=== PATIENT | female | born 1995 | race Caucasian/White ===

== ENCOUNTER 2016-12-28 10:41 | Emergency (ER) | payer OTHER ==
[~2016-12-28] VITALS: Ht 157.5 cm; Wt 114.0 kg
[~2016-12-28 10:41] MED LIST: DOCU-144 PO; FER325 PO; MEDR10TA2 PO
[2016-12-28 10:44] VITALS: Ht 157.5 cm; Wt 114.0 kg
[2016-12-28] MEDS ORDERED: IBUPROFEN 600 MG TAB PO ONE (11:00)
--- NOTE | 2016-12-28 11:55 | ERD ---
ER Documentation Chief Complaint Date/Time DATE: 12/28/16 TIME: 11:52 Chief Complaint pt bib self with c/o sore throat and fever for a few days HPI Patient is a 21-year-old female who presents to the emergency department for concerns of a headache and fever 3 days. Patient reports pain with swallowing. Denies any trismus, drooling or hyperextension of her neck. Patient states she did have a cough last night however it was secondary to her throat irritation. Patient denies any cough otherwise. Patient denies any rhinorrhea, ear pain, abdominal pain, nausea, vomiting or diarrhea. Patient does report some generalized body aches. No recent travel. No sick contacts. Patient denies taking any medications for fevers. Patient did not check her temperature at home. ROS All systems reviewed and are negative except as per history of present illness. Medications Home Meds Active Scripts Acetaminophen* (Tylophen*) 500 Mg Capsule, 1 CAP PO Q6H Y for PAIN AND OR ELEVATED TEMP, #20 CAP Prov:KENNETH GREEN PA-C 12/28/16 Ibuprofen* (Motrin*) 600 Mg Tab, 600 MG PO Q6, #30 TAB Prov:KENNETH GREEN PA-C 12/28/16 Azithromycin* (Zithromax*) 500 Mg Tablet, 500 MG PO DAILY for 5 Days, TAB Prov:KENNETH GREEN PA-C 12/28/16 Docusate Sodium* (Colace*) 100 Mg Capsule, 100 MG PO BID, #60 CAP Prov:ISABEL CORONA PA-C 07/27/15 Ferrous Sulfate* (Ferrous Sulfate*) 325 Mg Tabec, 325 MG PO BID, #30 TAB Prov:ISABEL CORONA PA-C 07/27/15 Medroxyprogesterone Acetate* (Provera*) 10 Mg Tablet, 10 MG PO DAILY, #10 TAB Prov:ISABEL CORONA PA-C 07/27/15 Allergies Allergies: Uncoded Allergies: PENICILLIN (Allergy, Unknown, 10/01/13) PMhx/Soc Medical and Surgical Hx: pt denies Surgical Hx History of Surgery: No Anesthesia Reaction: No Hx Neurological Disorder: No Hx Respiratory Disorders: No Hx Cardiac Disorders: No Hx Psychiatric Problems: No Hx Miscellaneous Medical Probl: Yes (ANEMIA) Hx Alcohol Use: No Hx Substance Use: No Hx Tobacco Use: Yes Smoking Status: Current every day smoker Physical Exam Vitals Vital Signs Date Time Temp Pulse Resp B/P Pulse Ox O2 Delivery O2 Flow Rate FiO2 12/28/16 13:04 100.2 99 18 123/86 100 Room Air 12/28/16 10:44 102.2 119 20 165/76 99 Physical Exam GENERAL: Well-developed, well-nourished female. Appears in no acute distress. Taking in full sentences HEAD: Normocephalic, atraumatic. No deformities or ecchymosis. EYE: Pupils equal, round, and reactive to light. EOMs intact. No conjunctival erythema. No eye discharge. ENT: External ear without any masses or tenderness. Auditory canals clear bilaterally. TM visualized bilaterally, non-erythematous, non-bulging. Nasal mucosa pink with no discharge. Bilateral tonsillar erythema and swelling noted. No unilateral tonsillar swelling. Single exudate noted on the patient' s right upper tonsil. No uvula deviation. No kissing tonsils. No trismus. No drooling. NECK: Supple. No meningismus. Normal ROM of the neck. Hyperextension of the neck. LUNG: Clear to auscultation bilaterally. No rhonchi, wheezing, rales or coarse breath sounds. HEART: Regular rate and rhythm. No murmurs, rubs or gallops. EXTREMITES: Equal pulses bilaterally. No peripheral clubbing, cyanosis or edema. No unilateral leg swelling. NEUROLOGIC: Alert and oriented to person, place and time. Moving all four extremities. 5/5 strength in all extremities. Normal speech. Steady gait. SKIN: Normal color. Warm and dry. No rashes or lesions. Results 24 hrs Laboratory Tests Test 12/28/16 11:20 Monoscreen Negative Current Medications Medications (Trade) Dose Ordered Sig/Marion Route PRN Reason Start Time Stop Time Status Last Admin Dose Admin Ibuprofen (Motrin) 600 mg ONCE ONCE PO 12/28/16 11:00 12/28/16 11:01 DC 12/28/16 11:04 Procedures/MDM ED COURSE: The patient was stable throughout ED course. I kept the patient and/or family informed of laboratory and diagnostic imaging results throughout the ED course. EKG: Read by Dr. Escobedo, attending physician. EKG shows sinus tachycardia a rate of 103 bpm. No arrhythmias, acute ST elevations or T wave changes were noted. PROCEDURES: None. MEDICATIONS GIVEN: Ibuprofen Patient tolerated medication well with no adverse reactions. Patient reported improvement in pain. MEDICAL DECISION MAKING: This is a 21-year-old female presents with throat pain and fever 3 days. Vital signs were reviewed. Patient was febrile at initial presentation with a temperature of 102.2F. Was also noted to be tachycardic with a pulse of 119 bpm upon arrival. Patient was not hypoxic. The patient does not have trismus, muffled voice, uvula deviation, unilateral tonsillar swelling, or drooling. No signs of neck swelling or hyperextension of the neck noted. She was given Motrin here in the emergency department. Patient's temperature was noted to be down trending. Monospot was negative. EKG showed sinus tachycardia of 103 bpm. Given these findings, the patients presentation is most consistent with bacterial tonsillitis.Low suspicion for epiglottitis, peritonsillar abscess, retropharyngeal abscess, Ludwigs angina, mononucleosis, dental abscess. Patient 's pulse and temperature were noted to be downtrending prior to discharge. Low suspicion for sepsis. PRESCRIPTIONS: Azithromycin, given patient has PCN allergy Tylenol/Ibuprofen for fever and pain control. DISCHARGE: At this time, patient is stable for discharge and outpatient management. Supportive therapies such as OTC throat lozenges and warm salt water gurgles were discussed. I have instructed the patient to follow-up with his/her primary care physician in 1-2 days. I have discussed with the patient the possibility of needing to see a specialist for further workup and imaging studies if symptoms persist. I have instructed the patient to promptly return to the ER for any new or worsening symptoms including increased pain, fever, nausea, vomiting, weakness or LOC. The patient and/or family expressed understanding of and agreement with this plan. All questions were answered. Home care instructions were provided. Patients blood pressure was elevated (>120/80) but appears stable without evidence of hypertensive emergency, hypertensive urgency or end-organ failure. I had discussion with the patient about the risks of hypertension. I have advised the patient to follow up with his/her primary care physician for outpatient monitoring and treatment for hypertension in 2-3 days. I have instructed the patient to return to the ER for any new or worsening symptoms including chest pain, shortness of breath, headache, blurred vision, confusion, nausea, vomiting or LOC. Departure Diagnosis: Primary Impression: Acute bacterial tonsillitis Condition: Stable Patient Instructions: Pharyngitis, Strep (Presumed) Referrals: [facility] YOU HAVE RECEIVED A MEDICAL SCREENING EXAM AND THE RESULTS INDICATE THAT YOU DO NOT HAVE A CONDITION THAT REQUIRES URGENT TREATMENT IN THE EMERGENCY DEPARTMENT. FURTHER EVALUATION AND TREATMENT OF YOUR CONDITION CAN WAIT UNTIL YOU ARE SEEN IN YOUR DOCTORS OFFICE WITHIN THE NEXT 1-2 DAYS. IT IS YOUR RESPONSIBILITY TO MAKE AN APPOINTMENT FOR FOLOW-UP CARE. IF YOU HAVE A PRIMARY DOCTOR --you should call your primary doctor and schedule an appointment IF YOU DO NOT HAVE A PRIMARY DOCTOR YOU CAN CALL OUR PHYSICIAN REFERRAL HOTLINE AT IF YOU CAN NOT AFFORD TO SEE A PHYSICIAN YOU CAN CHOSE FROM THE FOLLOWING [facility] [address] [facility] [address] [facility] [address] [facility] [address] [facility] [address] [facility]. [facility] [address] [facility]. [facility] YOU HAVE RECEIVED A MEDICAL SCREENING EXAM AND THE RESULTS INDICATE THAT YOU DO NOT HAVE A CONDITION THAT REQUIRES URGENT TREATMENT IN THE EMERGENCY DEPARTMENT. FURTHER EVALUATION AND TREATMENT OF YOUR CONDITION CAN WAIT UNTIL YOU ARE SEEN IN YOUR DOCTORS OFFICE WITHIN THE NEXT 1-2 DAYS. IT IS YOUR RESPONSIBILITY TO MAKE AN APPOINTMENT FOR FOLOW-UP CARE. IF YOU HAVE A PRIMARY DOCTOR --you should call your primary doctor and schedule and appointment IF YOU DO NOT HAVE A PRIMARY DOCTOR YOU CAN CALL OUR PHYSICIAN REFERRAL HOTLINE AT . IF YOU CAN NOT AFFORD TO SEE A PHYSICIAN YOU CAN CHOSE FROM THE FOLLOWING [facility] IN[facility]UTIONS: [facility] [address] [place] [address] [facility] [address] [place] [address] [facility] [address] [place] [address] Additional Instructions: Take Motrin and Tylenol for fevers and pain. Call your primary care doctor TOMORROW for an appointment during the next 1-2 days.See the doctor sooner or return here if your condition worsens before your appointment time. KENNETH GREEN PA-C Dec 28, 2016 11:55
[2016-12-28] MEDS ORDERED: AZIT500T3 PO (12:25)
[2016-12-28] MEDS ORDERED: ACET500C5 PO (12:28)
[2016-12-28] MEDS ORDERED: IBUP-1542 PO (12:28)
[2016-12-28 13:04] VITALS: BP 123/86; PULSE 99; RESP 18; TEMP 100.2
== END 2016-12-28 13:33 | disposition home or self-care (01) ==
LOC: FTE 10:41
DX: J03.90 Acute tonsillitis, unspecified (principal); F17.210 Nicotine dependence, cigarettes, uncomplicated
CPT/HCPCS: 86308; 93005; Z7502; Z7610

== ENCOUNTER 2018-09-12 10:02 | Emergency (ER) | payer OTHER ==
[~2018-09-12] VITALS: Wt 120.0 kg
[~2018-09-12 10:02] MED LIST changes: +ACET500C5 PO; +AZIT500T3 PO; +IBUP-1542 PO
[2018-09-12 10:12] VITALS: BP 171/71; PULSE 78; RESP 18
[2018-09-12] MEDS ORDERED: KETOROLAC 30 MG INJ IM STA (10:29)
[2018-09-12] MEDS ORDERED: HYDR-4011 PO (11:29)
--- NOTE | 2018-09-12 11:47 | ERD ---
ER Documentation Chief Complaint Chief Complaint LEFT ANKLE PAIN AFTER FALL YESTERDAY HPI 23-year-old female no significant past medical history who presents for left ankle pain x1 day. States that she was walking and fell down steps and rolled her ankle. She states that she has 10 out of 10 pain. The pain is mostly in the lateral side. The pain is described as sharp, nonradiating, worse with movement. she tried some ibuprofen and ice with mild relief. No other modifying factors noted, no treatment tried at home. ROS All systems reviewed and are negative except as per history of present illness. Medications Home Meds Active Scripts Hydrocodone/Acetaminophen (Excel 5-325 Tablet) 1 Each Tablet, 1 TAB PO Q6H PRN for PAIN, #10 TAB Prov:JOEL MCFARLAND DO 09/12/18 Acetaminophen* (Tylophen*) 500 Mg Capsule, 1 CAP PO Q6H PRN for PAIN AND OR ELEVATED TEMP, #20 CAP Prov:KENNETH GREEN PA-C 12/28/16 Ibuprofen* (Motrin*) 600 Mg Tab, 600 MG PO Q6, #30 TAB Prov:KENNETH GREEN PA-C 12/28/16 Azithromycin* (Zithromax*) 500 Mg Tablet, 500 MG PO DAILY for 5 Days, TAB Prov:KENNETH GREEN PA-C 12/28/16 Docusate Sodium* (Colace*) 100 Mg Capsule, 100 MG PO BID, #60 CAP Prov:ISABEL CORONA PA-C 07/27/15 Ferrous Sulfate* (Ferrous Sulfate*) 325 Mg Tabec, 325 MG PO BID, #30 TAB Prov:ISABEL CORONA PA-C 07/27/15 Medroxyprogesterone Acetate* (Provera*) 10 Mg Tablet, 10 MG PO DAILY, #10 TAB Prov:ISABEL CORONA PA-C 07/27/15 Allergies Allergies: Uncoded Allergies: PENICILLIN (Allergy, Unknown, 10/01/13) PMhx/Soc Medical and Surgical Hx: pt denies Medical Hx, pt denies Surgical Hx History of Surgery: No Anesthesia Reaction: No Hx Neurological Disorder: No Hx Respiratory Disorders: No Hx Cardiac Disorders: No Hx Psychiatric Problems: No Hx Miscellaneous Medical Probl: No Hx Alcohol Use: No Hx Substance Use: No Hx Tobacco Use: No Smoking Status: Never smoker FmHx Family History: No coronary disease Physical Exam Vitals Vital Signs Date Temp Pulse Resp B/P (MAP) Pulse Ox O2 O2 Flow FiO2 Time Delivery Rate 09/12/18 98.0 78 18 171/71 99 10:12 (104) Physical Exam Const: No acute distress Resp: Clear to auscultation bilaterally Cardio: Regular rate and rhythm, no murmurs Skin: No petechiae or rashes Back: No midline or flank tenderness Neur: Awake and alert Psych: Normal Mood and Affect Lower Extremity -bilateral: Skin: No laceration Compartments: Soft Motor: Full active range of motion hip/knee, decreased range of motion of the left ankle Sensation: Intact to light touch FDWS/MF/LF/P surfaces. Bones: Nontender pelvis/knee/proximal tibia/tenderness palpation of the left ankle and lateral malleolus as well as above the lateral malleolus Joints: There is swelling noted over the lateral malleoli area Pulses/Perfusion: 2+ DP, Capillary refill < 2 seconds Results 24 hrs Laboratory Tests Test 09/12/18 10:55 POC Beta HCG, Qualitative NEGATIVE Current Medications Medications Dose Sig/Marion Start Time Status Last (Trade) Ordered Route PRN Stop Time Admin Dose Reason Admin Ketorolac 30 mg ONCE STAT 09/12/18 DC 09/12/18 Tromethamine IM 10:29 11:01 (Toradol) 09/12/18 10:31 Procedures/MDM Medical Decision Making: Differential diagnosis includes but not limited to fracture, dislocation, muscle strain, ligamentous sprain, septic joint, gout, arthritis, osteomyelitis Patient appeared well on physical exam. There was tenderness over the left ankle Patient was neurovascularly intact Patient does not have fever, no recent infection. there is low suspicion for septic joint, osteomyelitis ED course: Patient was given Toradol. Symptoms improved with treatment. Imaging: X-ray left tib/Fib 2V Interpreted by me: Bones: No fracture Joints: No dislocation Foreign body: None X-ray left ankle 3V Interpreted by me: Bones: No fracture Joints: No dislocation Foreign Body: None There is no suspicion for fracture dislocation given x-ray findings. Patient given crutches and Mitchel bandage in the ER for comfort Prescription(s): Patient given prescription for supportive medication(s) and Excel low-dose short course The patient has been prescribed Excel during this encounter. The patient has been warned about the use of narcotics. The patient should not drive or operate heavy machinery while taking this medication. The patient was also warned about the addictive properties of narcotic medications. Narcan prescription was NOT provided given the following criteria 1. No more than 5 tablets of Excel 10 mg or 10 tablets of Excel 5 mg were prescribed. 2. Concomitant opiate and benzodiazepine prescriptions were not provided. 3. There is no obvious evidence of prior history of opiate abuse or overdose. Patient advised to follow up with PCP in 1-2 days. Patient advised to return to ED for new or worsening symptoms. Patient stable on discharge from the ED. Disclaimer: Inadvertent spelling and grammatical errors are likely due to EHR/dictation software use and do not reflect on the overall quality of patient care. Also, please note that the electronic time recorded on this note does not necessarily reflect the actual time of the patient encounter. Departure Diagnosis: Primary Impression: Ankle injury Encounter type: initial encounter Laterality: left Qualified Codes: S99.912A - Unspecified injury of left ankle, initial encounter Condition: Fair Patient Instructions: What Are Ankle Sprains?, Treating Ankle Sprains Referrals: PENDING SALE TO [facility] YOU HAVE RECEIVED A MEDICAL SCREENING EXAM AND THE RESULTS INDICATE THAT YOU DO NOT HAVE A CONDITION THAT REQUIRES URGENT TREATMENT IN THE EMERGENCY DEPARTMENT. FURTHER EVALUATION AND TREATMENT OF YOUR CONDITION CAN WAIT UNTIL YOU ARE SEEN IN YOUR DOCTORS OFFICE WITHIN THE NEXT 1-2 DAYS. IT IS YOUR RESPONSIBILITY TO MAKE AN APPOINTMENT FOR FOLOW-UP CARE. IF YOU HAVE A PRIMARY DOCTOR --you should call your primary doctor and schedule an appointment IF YOU DO NOT HAVE A PRIMARY DOCTOR YOU CAN CALL OUR PHYSICIAN REFERRAL HOTLINE AT IF YOU CAN NOT AFFORD TO SEE A PHYSICIAN YOU CAN CHOSE FROM THE FOLLOWING [facility] [address] [facility] [address] [facility] [facility] [address] [facility] [address] [facility]. [facility] [address] [facility]. [facility]. [address] Additional Instructions: Call your primary care doctor TOMORROW for an appointment during the next 1-2 days.See the doctor sooner or return here if your condition worsens before your appointment time. Recommend ice, elevation, pain medication as needed. Recommend range of motion exercises when the swelling and pain decreases. Return to ER for worsening pain, swelling, fever. JOEL MCFARLAND DO September 12, 2018 11:47
== END 2018-09-12 11:51 | disposition home or self-care (01) ==
LOC: FTE 10:02
DX: S99.912A Unspecified injury of left ankle, initial encounter (principal); W10.9XXA Fall (on) (from) unspecified stairs and steps, initial encounter; Y92.9 Unspecified place or not applicable
CPT/HCPCS: 73590; 73610; 81025; J1885; 96372

== ENCOUNTER 2019-01-02 11:54 | Emergency (ER) | payer OTHER ==
[~2019-01-02] VITALS: Ht 160 cm; Wt 137.4 kg
[~2019-01-02 11:54] MED LIST changes: +HYDR-4011 PO; +NITR-58 PO
[2019-01-02 11:59] VITALS: BP 141/75; PULSE 77; RESP 18; Ht 160 cm; Wt 137.4 kg
== END 2019-01-02 14:33 | disposition home or self-care (01) ==
LOC: FTE 11:54
DX: O46.8X1 Other antepartum hemorrhage, first trimester (principal); Z3A.01 Less than 8 weeks gestation of pregnancy
CPT/HCPCS: 76801; 76817; 81003; Z7502